=== PATIENT | male | born 1995 | race Caucasian/White ===

== ENCOUNTER 2016-09-06 08:05 | Emergency (ER) | payer OTHER ==
[2016-09-06 08:18] VITALS: BP 122/81
[2016-09-06] MEDS ORDERED: TRAMADOL HYDROC50 MG PO (08:22)
[2016-09-06] MEDS ORDERED: PENICILLN VK500 MG PO (08:22)
[2016-09-06] MEDS ORDERED: MOTRIN800 MG PO (08:22)
== END 2016-09-06 08:38 | disposition home or self-care (01) | DRG 159 ==
LOC: ED 08:05
DX: K08.89 Other specified disorders of teeth and supporting structures (principal); K02.9 Dental caries, unspecified; R22.0 Localized swelling, mass and lump, head

== ENCOUNTER 2016-09-09 18:39 | Emergency (ER) | payer OTHER ==
[~2016-09-09] VITALS: Ht 175.3 cm; Wt 67.0 kg
[~2016-09-09 18:39] MED LIST: MOTRIN800 MG PO; PENICILLN VK500 MG PO; TRAMADOL HYDROC50 MG PO
[2016-09-09 19:31] LABS: HEMATOCRIT 53.3 % (39.0-50.0); IMMATURE GRANULOCYTES 0.5 % (0.0-1.0); MEAN CELL VOLUME 89.6 fL CALC (80.0-100.0); MEAN CORPUSCULAR HGB 30.3 pG CALC (26.0-32.0); MEAN CORPUSCULAR HGB CONC 33.8 g/L CALC (32.0-36.0); NEUT# 8.83 thou/uL (1.82-7.42); RED BLOOD COUNT 5.95 mill/uL (4.70-6.10); RED CELL DISTRI WIDTH 12.7 % (11.5-15.5)
[2016-09-09 19:40] LABS: ALBUMIN 5.2 g/dL (3.2-5.0); ALKALINE PHOSPHATASE 74 u/l (38-126); ANION GAP 20 (6-22 (CALC)); BILIRUBIN, TOTAL 2.7 mg/dL (0.0-1.4); BUN 35 mg/dL (9-20); BUN/CREATININE RATIO 30 (12-20 (CALC)); CALCIUM 10.4 mg/dL (8.4-10.2); CARBON DIOXIDE 29 mmol/l (22-30); CHLORIDE 99 mmol/l (95-108); CREATININE 1.2 mg/dL (0.7-1.3); GFR > 60 ML/MIN (>=60 (CALC)); GFR FOR AFR.AMER. > 60 ML/MIN (>=60 (CALC)); GLUCOSE 104 mg/dL (75-110); MAGNESIUM 2.2 mg/dL (1.6-2.3); POTASSIUM 4.6 mmol/l (3.5-5.1); SGOT/AST 31 u/l (17-59); SGPT/ALT 20 u/l (21-72); SODIUM 143 mmol/l (137-146); TOTAL PROTEIN 9.1 g/dL (6.3-8.2)
[2016-09-09 19:44] LABS: ETHYL ALCOHOL 0 mg/dl (0-30)
[2016-09-10 05:00] VITALS: BP 95/71
== END 2016-09-10 05:56 | disposition home or self-care (01) | DRG 918 ==
LOC: ED 18:39
PROVIDERS: Emergency Medicine
DX: T40.4X1A Poisoning by other synthetic narcotics, accidental (unintentional), initial encounter (principal); Y92.009 Unspecified place in unspecified non-institutional (private) residence as the place of occurrence of the external cause

== ENCOUNTER 2018-08-03 06:24 | Emergency (ER) | payer SELFPAY ==
[~2018-08-03] VITALS: Ht 175.3 cm; Wt 61.0 kg
[2018-08-03] MEDS ORDERED: BACTRIM DS1 TAB PO (07:35)
[2018-08-03] MEDS ORDERED: ULTRAM50 M1 PO (07:35)
[2018-08-03 07:44] VITALS: BP 115/78
== END 2018-08-03 07:50 | disposition home or self-care (01) | DRG 603 ==
LOC: ED 06:24
PROC: 0H9FXZZ Drainage of Right Hand Skin, External Approach (ICD-10-PCS; principal; 2018-08-03)
DX: L02.511 Cutaneous abscess of right hand (principal); F17.210 Nicotine dependence, cigarettes, uncomplicated; B95.61 Methicillin susceptible Staphylococcus aureus infection as the cause of diseases classified elsewhere